=== PATIENT | male | born 1990 | race Caucasian/White ===

== ENCOUNTER 2020-03-01 18:21 | Emergency (ER) | payer BC, SELFPAY ==
[2020-03-01 18:22] VITALS: BP 162/102; PULSE 121; RESP 13; TEMP 37.2; O2SAT 100; BMI 44.4
--- NOTE | 2020-03-01 18:36 | ECG_ITS ---
APPROVED REPORT Exam: Resting ECG HR:118 bpm ECG Measurements Heart Rate 118 AXES VA 166 P 54 QRSd 90 QRS 14 QT 320 T 32 QTc 448 <Conclusion> Sinus tachycardia Possible Left atrial enlargement Borderline ECG Electronically signed by : Dick Ruff, 03/05/2020 14:00:33
--- NOTE | 2020-03-01 18:41 | XR_ITS ---
PROCEDURE: XR CHEST 2V CLINICAL HISTORY: tachycardia COMPARISON: No exams were available for comparison FINDINGS: The cardiomediastinal silhouette and pulmonary vascularity are within normal limits. The lungs are clear without infiltrates, suspicious nodules, or pleural effusions. There is kyphosis of the lower thoracic spine at the thoracolumbar junction which appears chronic IMPRESSION: No acute finding, see above Dictated by: Geronimo Samayoa MD 03/02/2020 07:45 Electronically signed by Geronimo Samayoa MD in [place] 03/02/2020 07:45
[2020-03-01 18:49] LABS: Basophils % 0.4 % (0.1-2.0); Eosinophils # 0.1 K/mm3 (0.0-0.4); Eosinophils % 1.4 % (0.1-12.0); Hematocrit 46.8 % (42.0-52.0); Hemoglobin 15.7 g/dL (14.1-18.0); Lymphocytes # 1.7 K/mm3 (0.7-4.5); Lymphocytes % 21.4 % (10-50); Mean Corpuscular HGB Conc 33.5 g/dL (31.8-35.4); Mean Corpuscular Hemoglobin 27.2 pg (27.0-31.2); Mean Corpuscular Volume 81.2 fl (80-94); Mean Platelet Volume 10.4 fl (7.4-10.4); Monocytes # 0.4 K/mm3 (0.1-1.0); Monocytes % 4.5 % (1.7-9.3); Neutrophils # 5.9 K/mm3 (1.8-7.8); Neutrophils % 72.3 % (37.0-80.0); Platelet Count 193 K/mm3 (142-424); Red Blood Count 5.77 M/mm3 (4.60-6.20); Red Cell Distribution Width 13.7 % (11.5-17.5); White Blood Count 8.1 K/mm3 (4.8-10.8)
[2020-03-01 18:52] LABS: Chloride 102 mmol/L (98-107); Potassium 4.2 mmoL/L (3.5-5.1); Sodium 141 mmol/L (136-145)
[2020-03-01 18:55] LABS: Alanine Aminotransferase 92 U/L (12-78); Albumin Level 5.1 g/dl (3.5-5.0); Albumin/Globulin Ratio 1.4 (1.1-1.8); Alkaline Phosphatase 105 U/L (38-126); Anion Gap 18.2 mEq/L (5-15); Aspartate Amino Transferase 44 U/L (17-59); Bilirubin,Total 0.7 mg/dl (0.2-1.3); Blood Urea Nitrogen 15 mg/dl (9-20); Carbon Dioxide 25 mmol/L (22.0-30.0); Creatinine Clearance Estimated 127 mL/min (50-200); Estimated Glomerular Filt Rate 80 ml/min (>60); GFR (African American) 97 ML/MIN (>60); Globulin 3.7 g/dL (1.3-3.2); Total Protein,Serum 8.8 g/dl (6.3-8.2)
[2020-03-01 18:56] LABS: Calcium 10.3 mg/dl (8.4-10.2); Glucose 114 mg/dl (74-100)
[2020-03-01 19:09] LABS: Troponin I < 0.01 ng/ml (0.00-0.034)
[2020-03-01 19:13] LABS: T4 (Thyroxine) 12.6 ug/dl (5.53-11.0)
[2020-03-01 19:27] LABS: Thyroid Stimulating Hormone 3.62 uIU/mL (0.465-4.68)
[2020-03-01 19:29] VITALS: BP 128/85; PULSE 105; RESP 18; O2SAT 99
--- NOTE | 2020-03-01 19:31 | PC.NURSE ---
pt to rad via wheelchair per rad staff
--- NOTE | 2020-03-01 19:37 | HMH.EDARPALP ---
ED Disposition Clinical Impression: Palpitations Disposition: Home, Self-Care Condition on Discharge: Good Instructions: Arrhythmias Referrals: Marilee Roy [Primary Care Provider] - - Critical Care Critical Care Time: No Attestation: On 03/01/20, the high probability of a clinically significant, sudden or life threatening deterioration of the following system(s) required my full and direct attention, intervention and personal management. The time I documented below is in addition to time spent performing reported procedures but includes the following listed in this critical care notation. Medical Decision Making - Medical Records Medical records reviewed: Yes: I reviewed the patient's medical records. - [place] Inquiry Pt receiving controlled substance: No Vital Signs: 03/01/20 18:22 03/01/20 19:29 Temperature 98.9 F Temperature Source Oral Pulse Rate [Right] 121 H 105 H Respiratory Rate 13 18 Blood Pressure [Right Arm] 162/102 H 128/85 Blood Pressure Mean [Right Arm] 122 99 02 Sat by Pulse Oximetry 100 99 Oxygen Delivery Method Room Air - Lab Data Lab results reviewed: Yes: I reviewed the patient's lab results. Lab Results 03/01/20 18:38: WBC 8.1, RBC 5.77, Hgb 15.7, Hct 46.8, MCV 81.2, MCH 27.2, MCHC 33.5, RDW 13.7, Plt Count 193, MPV 10.4, Neut % (Auto) 72.3, Lymph % (Auto) 21.4, [place] % (Auto) 4.5, Eos % (Auto) 1.4, Baso % (Auto) 0.4, Neut # (Auto) 5.9, Lymph # (Auto) 1.7, [place] # (Auto) 0.4, Eos # (Auto) 0.1, Baso # (Auto) 0.0 03/01/20 18:38: Sodium 141, Potassium 4.2, Chloride 102, Carbon Dioxide 25, Anion Gap 18.2 H, BUN 15, Creatinine 1.10, Estimated Creat Clear 127, Estimated GFR 80, Est GFR ( Amer) 97, Glucose 114 H, Calcium 10.3 H, Total Bilirubin 0.7, AST 44, ALT 92 H, Alkaline Phosphatase 105, Troponin I < 0.01, Total Protein 8.8 H, Albumin 5.1 H, Globulin 3.7 H, Albumin/Globulin Ratio 1.4, TSH 3.62, Thyroxine (T4) 12.6 H Result diagrams: 03/01/20 18:38 03/01/20 18:38 Orders (Tests/Meds): ED MEDICATIONS Generic Name Dose Route Start Last Admin Trade Name Jennifer PRN Reason Stop Dose Admin Sodium Chloride 1,000 mls @ 999 mls/hr 03/01/20 18:45 03/01/20 18:45 Sod Chlor 0.9% 1000ml Bag IV 03/01/20 19:45 999 mls/hr .Q1H1M RONEY Administration ORDERS Category Date Time Status XR chest 2V Stat Exams 03/01/20 18:41 Ordered Troponin I Q3H Lab 03/01/20 21:45 Ordered Troponin I Q3H Lab 03/02/20 00:45 Ordered ECG Request by /Shakila Stat Y 03/01/20 18:41 Ordered Arrhythmia/Palpitations HPI - General Chief Complaint: Arrhythmia/Palpitations Stated Complaint: Fast heart jayla, pain in l shoulder Time Seen by Provider: 03/01/20 19:17 Mode of Arrival: Ambulatory Source of Information: Patient Limitations: No Limitations - History of Present Illness MD complaint: rapid heart beat Onset (ago): day(s) Duration: intermittent Severity: mild Context: occurred during rest Arrhythmia history: other (Tachycardia on keto diet) Associated symptoms: denies other symptoms - Related Data Allergies Allergy/AdvReac Type Severity Reaction Status Date / Time No Known Allergies Allergy Verified 03/01/20 18:41 [facility] History - Hepatitis A Screen Drug use history?: No High risk sexual behaviors?: No History of sexually transmitted infection?: No Currently employed?: No Childcare worker?: No Do you have indoor plumbing?: Yes Do you have electricity?: Yes Attestation statement:: This patient has been screened for Hepatitis A risk factors. I have reviewed the patient's past medical history: Yes Laterality Cases: Bilateral: Tonsillectomy - Social History Alcohol Intake: never Occupational Status: employed ROS Obtained: Yes All systems reviewed & no additional complaints - Constitutional Constitutional: Reports system reviewed and no additional complaints, except as docu - Eyes Eyes: Reports system reviewed and no additional complaints, except a
[2020-03-01 20:06] VITALS: BP 168/115; PULSE 105; RESP 15; TEMP 37.1; O2SAT 98
== END 2020-03-01 20:10 | disposition home or self-care (01) ==
PROVIDERS: Emergency Provider Family Medicine; PCP Physician Assistant
DX: R00.2 Palpitations (principal); M25.512 Pain in left shoulder
CPT/HCPCS: 71046; 80053; 84436; 84443; 84484; 85025; 93005; 96365; 99283

== ENCOUNTER 2024-07-22 10:07 | Outpatient (CLI) | payer OTHER, SELFPAY ==
--- NOTE | 2024-07-22 10:09 | US_ITS ---
FINAL REPORT CLINICAL HISTORY: ABNORMAL LFTs COMPARISON: None FINDINGS: Sonographic images of the right upper quadrant were obtained. Exam is suboptimal secondary to patient body habitus. The pancreas is obscured. There appears to be fatty infiltration of the liver. The gallbladder appears normal without evidence of gallstones.There is no evidence of biliary ductal dilatation.The common duct measures 3 mm. Limited images of the right kidney are unremarkable. IMPRESSION: Fatty liver. Reviewed, Interpreted and Dictated by Juvencio Simental MD Transcribed by Maite Barrera Authenticated and [facility]
== END 2024-07-22 23:59 | disposition home or self-care (01) ==
LOC: RAD 10:08
PROVIDERS: PCP Physician Assistant; Visit Provider Physician Assistant
DX: R79.89 Other specified abnormal findings of blood chemistry (principal)
CPT/HCPCS: 76705